=== PATIENT | male | born 1980 | race American Indian/Alaskan Native ===

== ENCOUNTER 2017-03-20 21:37 | Inpatient (IN) | payer OTHER ==
--- NOTE | 2017-03-20 22:40 | Emergency Department Report ---
ED Neuro Deficit HPI - General Chief Complaint: Extremity Injury, Upper Stated Complaint: ARM NUMBNESS Time Seen by Provider: 03/20/17 22:27 Source: patient Mode of arrival: Ambulatory Limitations: No Limitations - History of Present Illness Initial Comments: 37-year-old male past medical history none presents with complaint of left arm aching and tingling sensation. Patient is awake alert and oriented 3 denies chest pain shortness of breath palpitations abdominal pain. States he has been feeling slightly dehydrated lately. Denies nausea or vomiting denies dysuria. States he smokes marijuana occasionally denies cocaine use denies alcohol or any other drug use. Adamantly denies any recent new strenuous activity and/or injury to left upper extremity. Denies fevers or chills. Denies shortness of breath palpitations chest pain or abdominal pain. Onset/Timin -: days(s) History of same: No Place: home Severity: mild Quality: tingling, burning Context: gradual onset Associated Symptoms: denies other symptoms - Related Data Allergies/Adverse Reactions: Allergies Allergy/AdvReac Type Severity Reaction Status Date / Time No Known Allergies Allergy Unverified 03/20/17 21:40 ED Review of Systems ROS: Stated complaint: ARM NUMBNESS Other details as noted in HPI Constitutional: denies: chills, fever Eyes: denies: eye pain, eye discharge, vision change ENT: denies: ear pain, throat pain Respiratory: denies: cough, shortness of breath, wheezing Cardiovascular: denies: chest pain, palpitations Endocrine: no symptoms reported Gastrointestinal: denies: abdominal pain, nausea, diarrhea Genitourinary: denies: urgency, dysuria Musculoskeletal: as per HPI (left arm pain and tingling since this morning), arthralgia. denies: back pain, joint swelling Skin: denies: rash, lesions Neurological: denies: headache, weakness, paresthesias Psychiatric: denies: anxiety, depression Hematological/Lymphatic: denies: easy bleeding, easy bruising ED Past Medical Hx - Past Medical History Previous Medical History?: No - Surgical History Past Surgical History?: No - Social History Smoking Status: Current Every Day Smoker Substance Use Type: Alcohol, Marijuana ED Neuro Physical Exam - General Limitations: No Limitations General appearance: alert, in no apparent distress Suspected Stroke: No - Head Head exam: Present: atraumatic, normocephalic - Eye Eye exam: Present: normal appearance, PERRL, EOMI - ENT ENT exam: Present: mucous membranes moist - Neck Neck exam: Present: normal inspection - Respiratory Respiratory exam: Present: normal lung sounds bilaterally. Absent: respiratory distress - Cardiovascular Cardiovascular Exam: Present: regular rate, normal rhythm. Absent: systolic murmur, diastolic murmur, rubs, gallop - GI/Abdominal GI/Abdominal exam: Present: soft, normal bowel sounds - Rectal Rectal exam: Present: deferred - Extremities Exam Extremities exam: Present: normal inspection - Expanded Upper Extremity Exam Left Shoulder Exam: Present: normal inspection, full ROM Upper Arm exam: Present: normal inspection, full ROM Elbow exam: Present: normal inspection, full ROM (elbow flexion and extensiomn intact) Forearm Wrist exam: Present: normal inspection, full ROM Hand Wrist exam: Present: normal inspection, full ROM Neuro motor exam: Present: wrist extension intact, thumb opposition intact, thumb IP flexion intact, thumb adduction intact, fingers 2-5 abduction intact, other Neurosensory exam: Present: 2-point discrimination, radial nerve intact, ulnar nerve intact, median nerve intact Vascular: Present: radial pulse (distal radial and brachial pulses intact) - Back Exam Back exam: Present: normal inspection - Neurological Exam Neurological exam: Present: alert, oriented X3, CN II-XII intact, normal gait - NIHSS Assessment Interval: Baseline 1a. Level of Consciousness: alert 1b. LOC Questions: answers correctly 1c. LOC Commands: performs tasks correctly 2. Best Gaze: normal 3. Visual: no visual loss 4. Facial Palsy: normal symmetrical movement 5b. Motor Arm Right: no drift 5a. Motor Arm Left: no drift 6a. Motor Leg Left: no drift 6b. Motor Leg Right: no drift 7. Limb Ataxia: absent 8. Sensory: normal 9. Best Language: no aphasia 10. Dysarthria: normal 11. Extinction/Inattention: no abnormality Total Score: 0 Stroke Severity: No Stroke Symptoms - Psychiatric Psychiatric exam: Present: normal affect, normal mood - Skin Skin exam: Present: warm, dry, intact, normal color. Absent: rash ED Course Vital Signs 03/20/17 03/20/17 21:40 23:53 Temperature 98.3 F Pulse Rate 104 H Respiratory 16 18 Rate Blood Pressure 125/87 O2 Sat by Pulse 99 Oximetry - Lab Data Result diagrams: 03/20/17 23:10 03/20/17 23:10 Lab Results 03/20/17 03/20/17 03/20/17 Range/Units 23:10 23:10 23:10 WBC 8.5 (4.5-11.0) K/mm3 RBC 5.43 H (3.65-5.03) M/mm3 Hgb 14.8 (11.8-15.2) gm/dl Hct 45.0 (35.5-45.6) % MCV 83 L (84-94) fl MCH 27 L (28-32) pg MCHC 33 (32-34) % RDW 13.7 (13.2-15.2) % Plt Count 240 (140-440) K/mm3 Lymph % (Auto) 17.4 (13.4-35.0) % [place] % (Auto) 5.0 (0.0-7.3) % Eos % (Auto) 2.2 (0.0-4.3) % Baso % (Auto) 0.6 (0.0-1.8) % Lymph # 1.5 (1.2-5.4) K/mm3 [place] # 0.4 (0.0-0.8) K/mm3 Eos # 0.2 (0.0-0.4) K/mm3 Baso # 0.0 (0.0-0.1) K/mm3 Seg Neutrophils % 74.8 H (40.0-70.0) % Seg Neutrophils # 6.4 (1.8-7.7) K/mm3 Sodium 139 (137-145) mmol/L Potassium 3.4 L (3.6-5.0) mmol/L Chloride 99.3 (98-107) mmol/L Carbon Dioxide 24 (22-30) mmol/L Anion Gap 19 mmol/L BUN 19 (9-20) mg/dL Creatinine 1.0 (0.8-1.5) mg/dL Estimated GFR > 60 ml/min BUN/Creatinine Ratio 19 % Glucose 135 H (75-100) mg/dL Calcium 9.8 (8.4-10.2) mg/dL Total Creatine Kinase 2699 H (55-170) units/L - Medical Decision Making A/P: Rhabdomyolysis, left upper extremity paresthesia 1-is discussed with who also examined the pt 2-CK 2700s will begin IV hydration of the patient with normal saline 3-CBC and BMP otherwise unremarkable 4- Ct head unremarkable, forearm xray unremarkable 5- case discussed with hospitalist will admit patient. Will send flu swab at request of the hospitalist as patient is having body aches. Critical care attestation.: If time is entered above; I have spent that time in minutes in the direct care of this critically ill patient, excluding procedure time. ED Disposition Clinical Impression: Arm pain Qualifiers: Laterality: left Qualified Code(s): M79.602 - Pain in left arm Rhabdomyolysis Qualifiers: Rhabdomyolysis type: non-traumatic Qualified Code(s): M62.82 - Rhabdomyolysis Disposition: DC-09 OP ADMIT IP TO THIS HOSP Is pt being admited?: Yes Does the pt Need Aspirin: No Condition: Stable Referrals: PRIMARY CARE, [Primary Care Provider] - 3-5 Days
[2017-03-20] MEDS ORDERED: MOTRIN PO ONE (23:37)
[2017-03-20 23:38] LABS: Anion Gap 19 mmol/L; BUN/Creatinine Ratio 19; Blood Urea Nitrogen 19 mg/dL (9-20); Calcium 9.8 mg/dL (8.4-10.2); Carbon Dioxide 24 mmol/L (22-30); Chloride 99.3 mmol/L (98-107); Glucose 135 mg/dL (75-100); Potassium 3.4 mmol/L (3.6-5.0); Sodium 139 mmol/L (137-145)
[2017-03-20 23:59] LABS: Basophils % (Auto) 0.6 % (0.0-1.8); Eosinophils % (Auto) 2.2 % (0.0-4.3); Hemoglobin 14.8 gm/dl (11.8-15.2); Mean Corpuscular HGB Conc 33 % (32-34); Mean Corpuscular Hemoglobin 27 pg (28-32); Mean Corpuscular Volume 83 fl (84-94); Red Blood Count 5.43 M/mm3 (3.65-5.03); Red Cell Distribution Width 13.7 % (13.2-15.2); White Blood Count 8.5 K/mm3 (4.5-11.0)
[2017-03-21 00:03] LABS: Platelet Count 240 K/mm3 (140-440)
[2017-03-21] MEDS ORDERED: NACL 0.9% 1000 ML 1,000 ML IV ONE ×3 (00:05→01:26)
[2017-03-21] MEDS ORDERED: NACL 0.9% 1000 ML 2,000 ML ONE (00:09)
--- NOTE | 2017-03-21 01:51 | History and Physical Report ---
History of Present Illness Date of examination: 03/21/17 Chief complaint: Generalized body ache History of present illness: 37-year-old male past medical history none presents with complaint of left arm aching and tingling sensation. Patient is awake alert and oriented 3 denies chest pain shortness of breath palpitations abdominal pain. States he has been feeling slightly dehydrated lately. Denies nausea or vomiting denies dysuria. States he smokes marijuana occasionally denies cocaine use denies alcohol or any other drug use. Adamantly denies any recent new strenuous activity and/or injury to left upper extremity. Denies fevers or chills. Denies shortness of breath palpitations chest pain or abdominal pain. Past History Past Medical History: No medical history Past Surgical History: No surgical history Social history: smoking, alcohol abuse (smokes marijuana) Medications and Allergies Allergies Allergy/AdvReac Type Severity Reaction Status Date / Time No Known Allergies Allergy Unverified 03/20/17 21:40 Active Meds: Active Medications Sodium Chloride (Nacl 0.9% 1000 Ml) 1,000 mls @ 999 mls/hr IV BOLUS ONE Stop: 03/21/17 02:26 Review of Systems All systems: negative (all 14 systems reviewed and found to be negative except as mentioned in HPI) Exam - Physical Exam Narrative exam: General - the patient is awake alert oriented to time place and person evidence of acute distress HEENT - head is atraumatic normocephalic pupils equal round reactive to light and accommodation extraocular movements intact oral mucosa moist oropharynx. Neck is supple no JVD no thyromegaly or lymphadenopathy no carotid bruit Heart - regular rate and rhythm no murmurs or gallops PMI not displaced Lungs - clear to auscultation bilaterally nonlabored breathing normal chest wall expansion Abdomen - is obese soft nondistended nontender normoactive bowel sounds no hepatosplenomegaly no abdominal masses or bruit appreciated Extremities - no cyanosis or edema Musculoskeletal system - normal range of movement all joints no obvious deformity or tenderness to palpation Neurological - grossly intact and nonfocal Skin - warm and dry no rashes or bruises Psychiatric - appropriate mood and affect Vascular - system no lymphadenopathy distal pulses 2+ bilaterally - Constitutional Vitals: Temp Pulse Resp BP Pulse Ox 98.3 F 104 H 18 125/87 99 03/20/17 21:40 03/20/17 21:40 03/20/17 23:53 03/20/17 21:40 03/20/17 21:40 Results - Labs CBC & Chem 7: 03/20/17 23:10 03/20/17 23:10 Labs: Laboratory Last Values WBC 8.5 K/mm3 (4.5-11.0) 03/20/17 23:10 RBC 5.43 M/mm3 (3.65-5.03) H 03/20/17 23:10 Hgb 14.8 gm/dl (11.8-15.2) 03/20/17 23:10 Hct 45.0 % (35.5-45.6) 03/20/17 23:10 MCV 83 fl (84-94) L 03/20/17 23:10 MCH 27 pg (28-32) L 03/20/17 23:10 MCHC 33 % (32-34) 03/20/17 23:10 RDW 13.7 % (13.2-15.2) 03/20/17 23:10 Plt Count 240 K/mm3 (140-440) 03/20/17 23:10 Lymph % (Auto) 17.4 % (13.4-35.0) 03/20/17 23:10 [place] % (Auto) 5.0 % (0.0-7.3) 03/20/17 23:10 Eos % (Auto) 2.2 % (0.0-4.3) 03/20/17 23:10 Baso % (Auto) 0.6 % (0.0-1.8) 03/20/17 23:10 Lymph # 1.5 K/mm3 (1.2-5.4) 03/20/17 23:10 [place] # 0.4 K/mm3 (0.0-0.8) 03/20/17 23:10 Eos # 0.2 K/mm3 (0.0-0.4) 03/20/17 23:10 Baso # 0.0 K/mm3 (0.0-0.1) 03/20/17 23:10 Seg Neutrophils % 74.8 % (40.0-70.0) H 03/20/17 23:10 Seg Neutrophils # 6.4 K/mm3 (1.8-7.7) 03/20/17 23:10 Sodium 139 mmol/L (137-145) 03/20/17 23:10 Potassium 3.4 mmol/L (3.6-5.0) L 03/20/17 23:10 Chloride 99.3 mmol/L (98-107) 03/20/17 23:10 Carbon Dioxide 24 mmol/L (22-30) 03/20/17 23:10 Anion Gap 19 mmol/L 03/20/17 23:10 BUN 19 mg/dL (9-20) 03/20/17 23:10 Creatinine 1.0 mg/dL (0.8-1.5) 03/20/17 23:10 Estimated GFR > 60 ml/min 03/20/17 23:10 BUN/Creatinine Ratio 19 % 03/20/17 23:10 Glucose 135 mg/dL (75-100) H 03/20/17 23:10 Calcium 9.8 mg/dL (8.4-10.2) 03/20/17 23:10 Total Creatine Kinase 2699 units/L (55-170) H 03/20/17 23:10 Assessment and Plan Assessment and plan: Assessment and plan - * Rhabdomyolysis - unclear etiology, will monitor CPK with aggressive IV fluid rehydration * Hypokalemia - replace and monitor * We will admit the patient to medical floor, give aggressive IV fluid rehydration * Monitor CBC and electrolytes * Replace electrolytes when necessary as before, * DVT GI prophylaxis as ordered * Monitor and follow the patient closely VTE prophylaxis?: Chemical, Mechanical Plan of care discussed with patient/family: Yes
[2017-03-21] MEDS ORDERED: DULCOLAX PR PRN (01:52)
[2017-03-21] MEDS ORDERED: TYLENOL PO PRN (01:52)
[2017-03-21] MEDS ORDERED: MORPHINE IV PRN (01:52)
[2017-03-21] MEDS ORDERED: ZOFRAN IV PRN (01:52)
[2017-03-21] MEDS ORDERED: AMBIEN PO PRN (01:52)
[2017-03-21] MEDS ORDERED: PROVENTIL IH PRN (01:52)
[2017-03-21] MEDS ORDERED: PERCOCET 5/325 PO PRN (01:52)
[2017-03-21] MEDS ORDERED: MILK OF MAGNESIA PO PRN (01:52)
[2017-03-21 09:15] LABS: Magnesium 2.1 mg/dL (1.7-2.3); Phosphorous 3.1 mg/dL (2.5-4.5)
[2017-03-21 09:17] LABS: Anion Gap 13 mmol/L; BUN/Creatinine Ratio 20; Blood Urea Nitrogen 16 mg/dL (9-20); Calcium 8.3 mg/dL (8.4-10.2); Carbon Dioxide 24 mmol/L (22-30); Creatine Kinase 1416 units/L (55-170); Glucose 91 mg/dL (75-100); Potassium 3.7 mmol/L (3.6-5.0); Sodium 140 mmol/L (137-145)
--- NOTE | 2017-03-21 09:43 | Event Note ---
Date: 03/21/17 Patient admitted with rhabdomyolysis and hypokalemia. I have seen and examined him today. Continue IV fluids. Repeat creatine kinase in the morning.
[2017-03-21] MEDS: PEPCID PO SCH ×2 (10:18→22:30)
[2017-03-21] MEDS: LOVENOX SUB-Q SCH (10:19)
[2017-03-21] MEDS: NACL 0.9% 1000 ML 1,000 ML IV SCH (14:51)
[2017-03-21 15:15] LABS: Bacteria,Urine 1+ /HPF (Negative); Bilirubin,Urine NEG (Negative); Blood,Urine NEG (Negative); Ketones,Urine TR mg/dL (Negative); Leukocyte Esterase,Urine NEG (Negative); Mucus,Urine 2+ /HPF; Nitrite,Urine NEG (Negative); Protein,Urine <15 mg/dL mg/dL (Negative)
[2017-03-22] MEDS: NACL 0.9% 1000 ML 1,000 ML IV SCH ×3 (00:56→21:44)
[2017-03-22] MEDS: PEPCID PO SCH ×2 (09:21→21:44)
[2017-03-22] MEDS: LOVENOX SUB-Q SCH (09:21)
--- NOTE | 2017-03-22 10:57 | Cat Scan Report ---
FINAL REPORT EXAM: CT Head CLINICAL INDICATIONS: LT FOREARM PARAESTHESIAS FINDINGS: Axial images of the head were obtained without intravenous contrast. Ventricles are normal in size and configuration. There is no evidence of intracranial hemorrhage or hematoma. No intracranial mass or mass effect. No abnormal intra-or extra-axial fluid collections. There is no evidence of edema or sulcal effacement. The calvarium is intact. Partially visualized mucous retention cyst in the right maxillary sinus. Incidental left parietal scalp lipoma. IMPRESSION: NO ACUTE INTRACRANIAL PATHOLOGY.
--- NOTE | 2017-03-22 10:57 | XRay Report ---
FINAL REPORT EXAM: XR LT FOREARM CLINICAL INDICATIONS: LT FOREARM PARAESTHESIAS FINDINGS: 2 views obtained. No prior radiographs. No evidence of acute fracture or dislocation. Alignment is anatomic. No erosive or lytic bony changes. IMPRESSION: NORMAL RADIOGRAPHIC APPEARANCE OF THE LEFT FOREARM.
[2017-03-22 11:24] LABS: Basophils % (Auto) 0.9 % (0.0-1.8); Eosinophils % (Auto) 4.4 % (0.0-4.3); Hematocrit 38.4 % (35.5-45.6); Hemoglobin 12.3 gm/dl (11.8-15.2); Mean Corpuscular HGB Conc 32 % (32-34); Mean Corpuscular Hemoglobin 27 pg (28-32); Mean Corpuscular Volume 84 fl (84-94); Platelet Count 238 K/mm3 (140-440); Red Blood Count 4.59 M/mm3 (3.65-5.03); Red Cell Distribution Width 14.5 % (13.2-15.2); White Blood Count 6.5 K/mm3 (4.5-11.0)
[2017-03-22 11:42] LABS: Alanine Aminotransferase 19 units/L (7-56); Albumin 3.5 g/dL (3.9-5); Albumin/Globulin Ratio 1.5 %; Alkaline Phosphatase 53 units/L (35-129); Anion Gap 13 mmol/L; BUN/Creatinine Ratio 7; Blood Urea Nitrogen 4 mg/dL (9-20); Calcium 8.7 mg/dL (8.4-10.2); Carbon Dioxide 23 mmol/L (22-30); Chloride 108.6 mmol/L (98-107); Creatine Kinase 741 units/L (55-170); Glucose 96 mg/dL (75-100); Sodium 141 mmol/L (137-145); Total Protein 5.8 g/dL (6.3-8.2)
--- NOTE | 2017-03-22 14:08 | Progress Note ---
Assessment and Plan Assessment and plan: Acute rhabdomyolysis. Continue iv fluid NS at 125ml/hr. Will check Creatine kinase daily. Creatine kinase improving. It is 741 today from 2699 on admission. He denies trauma, denies any strenous activity Paraesthesia left arm. CT Head unremarkable. Consult Neurology, Dr. Lawson. DVT prophylaxis with Lovenox. Full code History Interval history: Left arm numbness and tingling, Hospitalist Physical - Physical exam Narrative exam: Gen Appearance: Not in acute distress, HEENT: normocephalic, atraumatic Neck: supple, no JVD Lungs: Clear to auscultation, no rales, no wheezing, Heart: S1 and S2 regular, no murmurs,no rubs or gallop, Abdomen: Soft , non tender, non distended, normal bowel sounds Extremity: No edema, no clubbing or cyanosis, Neuro : Awake,alert, oriented x 3, normal speech, moves all extremities Psych:Normal mood - Constitutional Vitals: Temp Pulse Resp BP Pulse Ox 97.8 F 63 16 104/68 99 03/22/17 08:00 03/22/17 08:00 03/22/17 08:00 03/22/17 08:00 03/22/17 08:00 Results - Labs CBC & Chem 7: 03/22/17 11:09 03/22/17 11:09 Labs: Laboratory Last Values WBC 6.5 K/mm3 (4.5-11.0) 03/22/17 11:09 RBC 4.59 M/mm3 (3.65-5.03) 03/22/17 11:09 Hgb 12.3 gm/dl (11.8-15.2) 03/22/17 11:09 Hct 38.4 % (35.5-45.6) D 03/22/17 11:09 MCV 84 fl (84-94) 03/22/17 11:09 MCH 27 pg (28-32) L 03/22/17 11:09 MCHC 32 % (32-34) 03/22/17 11:09 RDW 14.5 % (13.2-15.2) 03/22/17 11:09 Plt Count 238 K/mm3 (140-440) 03/22/17 11:09 Lymph % (Auto) 37.6 % (13.4-35.0) H 03/22/17 11:09 [place] % (Auto) 6.2 % (0.0-7.3) 03/22/17 11:09 Eos % (Auto) 4.4 % (0.0-4.3) H 03/22/17 11:09 Baso % (Auto) 0.9 % (0.0-1.8) 03/22/17 11:09 Lymph # 2.4 K/mm3 (1.2-5.4) 03/22/17 11:09 [place] # 0.4 K/mm3 (0.0-0.8) 03/22/17 11:09 Eos # 0.3 K/mm3 (0.0-0.4) 03/22/17 11:09 Baso # 0.1 K/mm3 (0.0-0.1) 03/22/17 11:09 Seg Neutrophils % 50.9 % (40.0-70.0) 03/22/17 11:09 Seg Neutrophils # 3.3 K/mm3 (1.8-7.7) 03/22/17 11:09 Sodium 141 mmol/L (137-145) 03/22/17 11:09 Potassium 4.0 mmol/L (3.6-5.0) 03/22/17 11:09 Chloride 108.6 mmol/L (98-107) H 03/22/17 11:09 Carbon Dioxide 23 mmol/L (22-30) 03/22/17 11:09 Anion Gap 13 mmol/L 03/22/17 11:09 BUN 4 mg/dL (9-20) L 03/22/17 11:09 Creatinine 0.6 mg/dL (0.8-1.5) L 03/22/17 11:09 Estimated GFR > 60 ml/min 03/22/17 11:09 BUN/Creatinine Ratio 7 % 03/22/17 11:09 Glucose 96 mg/dL (75-100) 03/22/17 11:09 Calcium 8.7 mg/dL (8.4-10.2) 03/22/17 11:09 Phosphorus 3.10 mg/dL (2.5-4.5) 03/21/17 08:34 Magnesium 2.10 mg/dL (1.7-2.3) 03/21/17 08:34 Total Bilirubin 0.30 mg/dL (0.1-1.2) 03/22/17 11:09 AST 27 units/L (5-40) 03/22/17 11:09 ALT 19 units/L (7-56) 03/22/17 11:09 Alkaline Phosphatase 53 units/L (35-129) 03/22/17 11:09 Total Creatine Kinase 741 units/L (55-170) H 03/22/17 11:09 Total Protein 5.8 g/dL (6.3-8.2) L 03/22/17 11:09 Albumin 3.5 g/dL (3.9-5) L 03/22/17 11:09 Albumin/Globulin Ratio 1.5 % 03/22/17 11:09 Urine Color Yellow (Yellow) 03/21/17 Unknown Urine Turbidity Clear (Clear) 03/21/17 Unknown Urine pH 6.0 (5.0-7.0) 03/21/17 Unknown Ur Specific [place] 1.024 (1.003-1.030) 03/21/17 Unknown Urine Protein <15 mg/dl mg/dL (Negative) 03/21/17 Unknown Urine Glucose (UA) Neg mg/dL (Negative) 03/21/17 Unknown Urine Ketones Tr mg/dL (Negative) 03/21/17 Unknown Urine Blood Neg (Negative) 03/21/17 Unknown Urine Nitrite Neg (Negative) 03/21/17 Unknown Urine Bilirubin Neg (Negative) 03/21/17 Unknown Urine Urobilinogen 4.0 mg/dL (<2.0) 03/21/17 Unknown Ur Leukocyte Esterase Neg (Negative) 03/21/17 Unknown Urine WBC (Auto) 1.0 /HPF (0.0-6.0) 03/21/17 Unknown Urine RBC (Auto) 5.0 /HPF (0.0-6.0) 03/21/17 Unknown Urine Bacteria (Auto) 1+ /HPF (Negative) 03/21/17 Unknown Amorphous Crystals 2+ 03/21/17 Unknown Urine Mucus 2+ /HPF 03/21/17 Unknown
--- NOTE | 2017-03-22 15:41 | Consultation ---
History of Present Illness - Reason for Consult Consult date: 03/22/17 STROKE - History of Present Illness PATIENT SEEN AND ASSESSED i HAVE DICTATED A FULL NOTE ON THE PATIENT SUSPECT c5- 6 ROOT VS RADIAL NERVE PALSY ON THE LEFT PLAN FURTHER WORK UP AT THIS TIME... THERE ARE FEATURES OF BOTH THANKS Past History Past Medical History: No medical history Past Surgical History: No surgical history Social history: smoking, alcohol abuse (smokes marijuana) Medications and Allergies Allergies Allergy/AdvReac Type Severity Reaction Status Date / Time No Known Allergies Allergy Unverified 03/20/17 21:40 Active Meds: Active Medications Acetaminophen (Tylenol) 650 mg PO Q4H PRN PRN Reason: Pain MILD(1-3)/Fever >100.5/FUNES Albuterol (Proventil) 2.5 mg IH Q4HRT PRN PRN Reason: Shortness Of Breath Bisacodyl (Dulcolax) 10 mg OH QDAY PRN PRN Reason: Constipation unrelieved by MOM Enoxaparin Sodium (Lovenox) 40 mg SUB-Q QDAY [facility] Last Admin: 03/22/17 09:21 Dose: 40 mg Famotidine (Pepcid) 20 mg PO BID [facility] Last Admin: 03/22/17 09:21 Dose: 20 mg Sodium Chloride (Nacl 0.9% 1000 Ml) 1,000 mls @ 150 mls/hr IV DIRECT [facility] Last Admin: 03/22/17 07:39 Dose: 150 mls/hr Magnesium Hydroxide (Milk Of Magnesia) 30 ml PO Q4H PRN PRN Reason: Constipation Morphine Sulfate (Morphine) 2 mg IV Q4H PRN PRN Reason: Pain, Moderate (4-6) Ondansetron HCl (Zofran) 4 mg IV Q8H PRN PRN Reason: N/V unrelieved by Reglan Oxycodone/Acetaminophen (Percocet 5/325) 1 tab PO Q6H PRN PRN Reason: Pain, Moderate (4-6) Zolpidem Tartrate (Ambien) 5 mg PO QHS PRN PRN Reason: Insomnia Exam - Constitutional Vitals: Temp Pulse Resp BP Pulse Ox 97.8 F 63 16 104/68 99 03/22/17 08:00 03/22/17 08:00 03/22/17 08:00 03/22/17 08:00 03/22/17 08:00 Results - Labs CBC & Chem 7: 03/22/17 11:09 03/22/17 11:09 Labs: Abnormal lab results 03/22/17 03/22/17 Range/Units 11:09 11:09 MCH 27 L (28-32) pg Lymph % (Auto) 37.6 H (13.4-35.0) % Eos % (Auto) 4.4 H (0.0-4.3) % Chloride 108.6 H (98-107) mmol/L BUN 4 L (9-20) mg/dL Creatinine 0.6 L (0.8-1.5) mg/dL Total Creatine Kinase 741 H (55-170) units/L Total Protein 5.8 L (6.3-8.2) g/dL Albumin 3.5 L (3.9-5) g/dL
--- NOTE | 2017-03-22 19:05 | Magnetic Resonance Report ---
FINAL REPORT EXAM: MR CERVICAL SPINE WO CON HISTORY: Left-sided weakness TECHNIQUE: MRI was performed of the cervical spine using the following pulse sequences: Axial: 2D merge, T2 FR FSE Sagittal: T1, T2 and STIR PRIORS: None. FINDINGS: The vertebral bodies have normal height and alignment and cervical lordosis is preserved. The paraspinous soft tissues are unremarkable. The cervical cord has a normal signal intensity and appearance. The craniocervical junction is unremarkable. C2-3: Small broad-based posterior disc bulge asymmetrically larger on the right. No spinal or foraminal stenosis. C3-4: Small broad-based posterior disc bulge. No spinal or foraminal stenosis. C4-5: Small broad-based posterior disc bulge and mild bilateral uncovertebral hypertrophy. No spinal or foraminal stenosis. C5-6: Small broad-based posterior disc bulge. No spinal or foraminal stenosis. C6-7: No disc bulge or protrusion. Mild bilateral uncovertebral hypertrophy. No spinal or foraminal stenosis. C7-T1: No significant degenerative changes. No spinal or foraminal stenosis. IMPRESSION: Mild multilevel degenerative disc disease. No spinal or foraminal stenosis.
--- NOTE | 2017-03-22 19:39 | Magnetic Resonance Report ---
FINAL REPORT PROCEDURE: MR BRAIN WO CON TECHNIQUE: Magnetic resonance imaging of the brain was performed without contrast material. HISTORY: seizure COMPARISON: Head CT dated March 20, 2017 FINDINGS: Cerebellar tonsils are normally positioned. A lipoma is suspected in the left occipital scalp measuring 3.4 x 3.6 x 1.5 cm. The cerebral ventricles are normal in size. No areas of restricted diffusion are seen in the brain. 1.8 cm retention cyst is seen in the inferior aspect of the right maxillary sinus. Normal flow voids are seen in the visualized portions of the vessels of the [place] of [place]. No abnormal T2 signal is seen in the brain. No suggestion of mesial temporal sclerosis is seen. No intracranial hemorrhage or mass effect is seen. IMPRESSION: No intracranial abnormality is seen.
--- NOTE | 2017-03-23 01:44 | Consultation ---
HISTORY OF PRESENT ILLNESS: This is a 37-year-old black male that presents to [facility] for the acute onset of left-sided weakness, numbness, tingling involving the left arm, left leg. The patient had had a prior history of having left scalp lipoma. This was noted on CT and was otherwise unremarkable. The patient has tingling, numbness involving his left arm and left leg, denies loss of consciousness. This is a new onset of this problem. It is difficult to get a clear history whether some of the numbness seems to be more peripheral involving the elbow, distal arm. PHYSICAL EXAMINATION: NEUROLOGIC: A detailed examination of the patient reveals he has weakness of the radial innervated muscles of left arm, some slight aqua ammonia operator weakness. He can extend the arm, can elevate it against gravity, noticed he has no focal facial weakness. The patient has full gaze. Motor and sensory examination is unremarkable. Cranial nerves are intact. EXTREMITIES: Distal extremity examination of the legs is unremarkable. There is no dermatomal distribution of the numbness in his left arm, but it seems vaguely represents the C5-C6 dermatome on my examination. IMPRESSION AND PLAN: This patient's symptoms are quite non-anatomical and that they at times seems central, at times seems segmental. Would recommend getting an MRI of the brain and cervical spinal cord to be more complete or have a tendency to think that this is a partial radial nerve palsy, but he does not demonstrate all the classical symptoms of this, therefore further diagnostic workup is probably warranted at this point. JOB# [id number] NAVEEN/JEFF
[2017-03-23] MEDS: NACL 0.9% 1000 ML 1,000 ML IV SCH ×2 (06:05→23:49)
[2017-03-23] MEDS: LOVENOX SUB-Q SCH (11:19)
[2017-03-23] MEDS: PEPCID PO SCH ×2 (11:19→21:23)
--- NOTE | 2017-03-23 14:57 | Progress Note ---
Assessment and Plan Assessment and plan: Acute rhabdomyolysis. Continue iv fluid NS at 150 ml/hr. Will check Creatine kinase daily. Creatine kinase improving, 449 down from 2699 on admission. He denies trauma, denies any strenous activity Paraesthesia left arm. CT Head unremarkable. Consulted Neurology, Dr. Lawson and he was evaluated. MRI Brain unremarkable. MRI Cervical spine reveals multilevel degenerative disease. DVT prophylaxis with Lovenox. Full code status. Disposition: Most likely d/c home tomorrow History Interval history: Still c/o Left arm numbness and tingling, Hospitalist Physical - Physical exam Narrative exam: Gen Appearance: Not in acute distress, HEENT: normocephalic, atraumatic Neck: supple, no JVD Lungs: Clear to auscultation, no rales, no wheezing, Heart: S1 and S2 regular, no murmurs,no rubs or gallop, Abdomen: Soft , non tender, non distended, normal bowel sounds Extremity: No edema, no clubbing or cyanosis, Neuro : Awake,alert, oriented x 3, normal speech, moves all extremities, - Constitutional Vitals: Temp Pulse Resp BP Pulse Ox 97.9 F 59 L 14 102/68 97 03/23/17 08:00 03/23/17 08:00 03/23/17 08:00 03/23/17 08:00 03/23/17 08:00 Results - Labs CBC & Chem 7: 03/22/17 11:09 03/22/17 11:09 Labs: Laboratory Last Values WBC 6.5 K/mm3 (4.5-11.0) 03/22/17 11:09 RBC 4.59 M/mm3 (3.65-5.03) 03/22/17 11:09 Hgb 12.3 gm/dl (11.8-15.2) 03/22/17 11:09 Hct 38.4 % (35.5-45.6) D 03/22/17 11:09 MCV 84 fl (84-94) 03/22/17 11:09 MCH 27 pg (28-32) L 03/22/17 11:09 MCHC 32 % (32-34) 03/22/17 11:09 RDW 14.5 % (13.2-15.2) 03/22/17 11:09 Plt Count 238 K/mm3 (140-440) 03/22/17 11:09 Lymph % (Auto) 37.6 % (13.4-35.0) H 03/22/17 11:09 [place] % (Auto) 6.2 % (0.0-7.3) 03/22/17 11:09 Eos % (Auto) 4.4 % (0.0-4.3) H 03/22/17 11:09 Baso % (Auto) 0.9 % (0.0-1.8) 03/22/17 11:09 Lymph # 2.4 K/mm3 (1.2-5.4) 03/22/17 11:09 Sampson # 0.4 K/mm3 (0.0-0.8) 03/22/17 11:09 Eos # 0.3 K/mm3 (0.0-0.4) 03/22/17 11:09 Baso # 0.1 K/mm3 (0.0-0.1) 03/22/17 11:09 Seg Neutrophils % 50.9 % (40.0-70.0) 03/22/17 11:09 Seg Neutrophils # 3.3 K/mm3 (1.8-7.7) 03/22/17 11:09 Sodium 141 mmol/L (137-145) 03/22/17 11:09 Potassium 4.0 mmol/L (3.6-5.0) 03/22/17 11:09 Chloride 108.6 mmol/L (98-107) H 03/22/17 11:09 Carbon Dioxide 23 mmol/L (22-30) 03/22/17 11:09 Anion Gap 13 mmol/L 03/22/17 11:09 BUN 4 mg/dL (9-20) L 03/22/17 11:09 Creatinine 0.6 mg/dL (0.8-1.5) L 03/22/17 11:09 Estimated GFR > 60 ml/min 03/22/17 11:09 BUN/Creatinine Ratio 7 % 03/22/17 11:09 Glucose 96 mg/dL (75-100) 03/22/17 11:09 Calcium 8.7 mg/dL (8.4-10.2) 03/22/17 11:09 Phosphorus 3.10 mg/dL (2.5-4.5) 03/21/17 08:34 Magnesium 2.10 mg/dL (1.7-2.3) 03/21/17 08:34 Total Bilirubin 0.30 mg/dL (0.1-1.2) 03/22/17 11:09 AST 27 units/L (5-40) 03/22/17 11:09 ALT 19 units/L (7-56) 03/22/17 11:09 Alkaline Phosphatase 53 units/L (35-129) 03/22/17 11:09 Total Creatine Kinase 449 units/L (55-170) H 03/23/17 08:09 Total Protein 5.8 g/dL (6.3-8.2) L 03/22/17 11:09 Albumin 3.5 g/dL (3.9-5) L 03/22/17 11:09 Albumin/Globulin Ratio 1.5 % 03/22/17 11:09 Urine Color Yellow (Yellow) 03/21/17 Unknown Urine Turbidity Clear (Clear) 03/21/17 Unknown Urine pH 6.0 (5.0-7.0) 03/21/17 Unknown Ur Specific [place] 1.024 (1.003-1.030) 03/21/17 Unknown Urine Protein <15 mg/dl mg/dL (Negative) 03/21/17 Unknown Urine Glucose (UA) Neg mg/dL (Negative) 03/21/17 Unknown Urine Ketones Tr mg/dL (Negative) 03/21/17 Unknown Urine Blood Neg (Negative) 03/21/17 Unknown Urine Nitrite Neg (Negative) 03/21/17 Unknown Urine Bilirubin Neg (Negative) 03/21/17 Unknown Urine Urobilinogen 4.0 mg/dL (<2.0) 03/21/17 Unknown Ur Leukocyte Esterase Neg (Negative) 03/21/17 Unknown Urine WBC (Auto) 1.0 /HPF (0.0-6.0) 03/21/17 Unknown Urine RBC (Auto) 5.0 /HPF (0.0-6.0) 03/21/17 Unknown Urine Bacteria (Auto) 1+ /HPF (Negative) 03/21/17 Unknown Amorphous Crystals 2+ 03/21/17 Unknown Urine Mucus 2+ /HPF 03/21/17 Unknown
[2017-03-24] MEDS: NACL 0.9% 1000 ML 1,000 ML IV SCH (06:09)
[2017-03-24] MEDS: PEPCID PO SCH (10:15)
[2017-03-24] MEDS: LOVENOX SUB-Q SCH (10:15)
--- NOTE | 2017-03-24 10:44 | Discharge Summary ---
Providers - Providers Date of Admission: 03/21/17 01:52 Attending physician: VERONIKA OCHOA MD 03/22/17 11:24 Consult to Physician [CONS] Routine Consulting Provider: MARK LAWSON Reason For Exam: left upper ext paraesthesia Place consult to:: dr. lawson Notified:: office Phone number called:: Was contact made?: Yes If yes, spoke with:: ely Time called:: 11:43 Primary care physician: TROUBLE LOCATOR TEST DESK Hospitalization Condition: Stable Hospital course: Acute rhabdomyolysis. Continue iv fluid NS at 150 ml/hr. Will check Creatine kinase daily. Creatine kinase improving, 449 down from 2699 on admission. He denies trauma, denies any strenous activity Paraesthesia left arm. CT Head unremarkable. Consulted Neurology, Dr. Lawson and he was evaluated. MRI Brain unremarkable. MRI Cervical spine reveals multilevel degenerative disease. DVT prophylaxis with Lovenox. Full code status. Disposition: Most likely d/c home tomorrow Disposition: DC-01 TO HOME OR SELFCARE Time spent for discharge: 33 minutes Exam - Constitutional Vitals: Temp Pulse Resp BP Pulse Ox 97.8 F 90 16 118/78 99 03/23/17 21:32 03/23/17 21:32 03/23/17 21:32 03/23/17 21:32 03/23/17 21:32 Plan Follow up with: BRAN PHOENIX MD [Primary Care Provider] - 3-5 Days Forms: Work/School Release Form Prescriptions: oxyCODONE /ACETAMINOPHEN [Percocet 5/325 mg] 1 tab PO Q6H PRN #14 tablet PRN Reason: Pain, Moderate (4-6)
[2017-03-24 11:12] VITALS: BP 114/76
== END 2017-03-24 15:09 | disposition home or self-care (01) | DRG 558 ==
LOC: ED 21:37 → 3A 03-21 01:52
PROVIDERS: ADMIT Internal Medicine Geriatric Medicine; ATTEND Internal Medicine
DX: M62.82 Rhabdomyolysis (principal); F17.200 Nicotine dependence, unspecified, uncomplicated; E87.6 Hypokalemia
CPT/HCPCS: 36415; 70450; 70551; 72141; 80048; 80053; 81001; 82550; 83735; 84100; 85025; 87400; 96360; J1650; J7030